=== PATIENT | male | born 1950 | race Caucasian/White ===

== ENCOUNTER 2016-09-28 14:58 | Emergency (ER) | payer OTHER ==
[~2016-09-28] VITALS: Ht 180.3 cm; Wt 88.2 kg
[~2016-09-28 14:58] MED LIST: ATEN25TA PO; BUPR75TA10 PO; CYCL10TA9 PO; FLUT9.9S NS; IBUP800T28 PO; LISI10TA PO; MIRT45TA5 PO; NITR0.4T SL; PRAZ5CAP3 PO; RES30 PO
[2016-09-28 15:01] VITALS: BP 131/82; PULSE 69; RESP 16; O2SAT 96
[2016-09-28 15:46] LABS: BASOPHILS % (AUTO) 0.7 % (0-3); EOSINOPHILS % (AUTO) 2.9 % (0-5); MONOCYTES % (AUTO) 9.8 % (4-12); Mean Corpuscular Hemoglobin 31.8 pg (27.0-35.0); Mean Corpuscular Volume 94.1 fL (81-100); NEUTROPHILS % (AUTO) 65.1 % (40-74); Platelet Count 357 bil/L (150-400)
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
[2016-09-28 19:17] VITALS: BP 135/83; PULSE 68; RESP 18; O2SAT 98
== END 2016-09-28 19:18 | disposition home or self-care (01) ==
LOC: SED 14:58
DX: S16.1XXA Strain of muscle, fascia and tendon at neck level, initial encounter (principal); X50.9XXA Other and unspecified overexertion or strenuous movements or postures, initial encounter; Y93.89 Activity, other specified; Y92.89 Other specified places as the place of occurrence of the external cause; Y99.8 Other external cause status; R51 Headache; I10 Essential (primary) hypertension; J44.9 Chronic obstructive pulmonary disease, unspecified; F32.9 Major depressive disorder, single episode, unspecified; Z87.891 Personal history of nicotine dependence